=== PATIENT | female | born 1995 ===

== ENCOUNTER → 2018-08-05 | Emergency (ER) | payer OTHER ==
[~2018-08-05] VITALS: Ht 162.6 cm; Wt 60.8 kg
[~2018-08-05] MED LIST: CEFTIN250 MG PO; RISPERDAL0.5 MG; ZOLOFT25 MG
== END | disposition home or self-care (01) ==
LOC: ER 11:44
DX: R53.81 Other malaise (principal); F41.0 Panic disorder [episodic paroxysmal anxiety]

== ENCOUNTER 2018-12-13 10:51 | Emergency (ER) | payer OTHER ==
[~2018-12-13] VITALS: Ht 162.6 cm; Wt 61.7 kg
[2018-12-13] MEDS ORDERED: ATIVAN1 M1 PO (11:13)
[2018-12-13] MEDS ORDERED: ABILIFY2 MG PO (11:13)
[2018-12-13] MEDS ORDERED: WELLBUTRIN XL150 M1 PO (11:14)
== END 2018-12-13 16:08 | disposition home or self-care (01) ==
LOC: ER 10:51
DX: K52.9 Noninfective gastroenteritis and colitis, unspecified (principal)

== ENCOUNTER 2020-10-29 16:38 | Inpatient (IN) | payer OTHER ==
[~2020-10-29] VITALS: Ht 162.6 cm; Wt 72.6 kg
[~2020-10-29 16:38] MED LIST changes: +ABILIFY2 MG PO; +ATIVAN1 M1 PO; +WELLBUTRIN XL150 M1 PO
[2020-11-02] MEDS ORDERED: AMOX1TAB5 PO (11:08)
[2020-11-02] MEDS ORDERED: MORGIDOX100 MG PO (11:08)
== END 2020-11-02 12:43 | disposition home or self-care (01) | DRG 759 ==
LOC: ER 16:38 → OB/GYN 10-30 09:13
PROVIDERS: ADMIT Obstetrics & Gynecology; ATTEND Obstetrics & Gynecology
PROC: BW4GZZZ Ultrasonography of Pelvic Region (ICD-10-PCS; principal; 2020-10-30)
PROC: BW21ZZZ Computerized Tomography (CT Scan) of Abdomen and Pelvis (ICD-10-PCS; 2020-10-30)
DX: N73.0 Acute parametritis and pelvic cellulitis (principal); N70.01 Acute salpingitis